=== PATIENT | male | born 1955 ===

== ENCOUNTER 2024-09-24 08:00 | Outpatient (CLI) | payer OTHER ==
[~2024-09-24] VITALS: Ht 167.6 cm; Wt 95.3 kg
[2024-09-24 09:35] LABS: URINE APPEARANCE Clear; URINE BILIRRUBIN Negative (NEGATIVE); URINE BLOOD Negative; URINE COLOR Yellow; URINE GLUCOSE Negative (NEGATIVE); URINE KETONE Negative (NEGATIVE); URINE LEUKOCYTE Negative; URINE NITRATE Negative; URINE PROTEIN Negative (NEGATIVE); URINE UROBILINOGEN 0.2 E.U./dl
[2024-09-24 09:37] LABS: URINE BACTERIA 4.7 uL (0.0-1933); URINE WBC 2.7 uL (0.0-23.2)
[2024-09-24 09:42] LABS: BASO % 0.6 % (0.1-1.2); EOS # 0.08 (0.04-0.54); EOS % 1.2 % (0.7-7.0); LYMPH # 1.06 (1.18-3.74); LYMPH % 16.1 % (19.3-53.1); MEAN PLATELET VOLUME 9.00 fl (9.4-12.4); MONO # 0.68 (0.24-0.82); MONO % 10.3 % (4.7-12.5); NEUT # 4.73 (1.56-6.13); NEUT % 71.6 % (34.0-71.1); RED CELL DISTRIBUTION WIDTH 13.2 % (11.6-14.4)
[2024-09-24 09:52] VITALS: BP 160/83
[2024-09-24] MEDS ORDERED: DIOVAN320 MG PO (10:01)
[2024-09-24] MEDS ORDERED: TOPROL XL50 M1 PO (10:02)
[2024-09-24 10:15] LABS: INR 0.96
[2024-09-24 10:16] LABS: URINE CAST 0.29 uL (0.0-1.40); URINE EPITHELIAL CELLS 1.0 uL (0.0-38.8); URINE RBC 1.4 uL (0.0-20.8)
[2024-09-24 10:42] LABS: ALT/SGPT 20.0 U/L (12-78); AST/SGOT 14.0 U/L (15-37); BILIRUBIN TOTAL 0.99 mg/dL (0.3-1.2); BUN CREA RATIO 23.0 (7.0-25.0); CREATININE SERUM 1.06 mg/dL (0.70-1.30); GFR 69.27; GLOBULINA 3.1 G/DL (2.4-3.5); GLUCOSE FASTING 82.0 mg/dL (65-100); OSMOLALITY SERUM 284.0 MOSM/KG (275-295)
== END 2024-09-24 08:05 | disposition home or self-care (01) ==
LOC: RAD 08:00 → SURH 09-29 09:00 → EDSTATUS 09-29 09:00 → SURH 09-29 13:45
PROVIDERS: ATTEND Surgery
DX: C18.6 Malignant neoplasm of descending colon (principal)